=== PATIENT | male | born 1965 | race African-American/Black ===

== ENCOUNTER 2017-11-30 21:37 | Emergency (ER) | payer SELFPAY ==
[~2017-11-30] VITALS: Ht 180.3 cm; Wt 102.0 kg
[~2017-11-30 21:37] MED LIST: BENADRYL
[2017-11-30] MEDS ORDERED: LISI-662 PO (21:40)
[2017-11-30] MEDS ORDERED: DIPH25 PO (21:40)
[2017-11-30] MEDS ORDERED: DiphenhydrAMINE HCL 50 MG/ML VIAL IVP ONE (22:00)
[2017-11-30] MEDS ORDERED: FAMOTIDINE 10 MG/ML 2 ML VIAL IVP ONE (22:00)
[2017-11-30] MEDS ORDERED: MethylPREDNISolone SOD SUCC 125 MG/2 ML VIAL IVP ONE (22:00)
[2017-11-30 22:13] LABS: BASOPHILS % (AUTO) 0.5 % (0.0-2.0); EOSINOPHILS % (AUTO) 2.9 % (1.0-6.0); HEMATOCRIT 50.6 % (41-53); HEMOGLOBIN 17.4 g/dL (13.5-17.5); LYMPHOCYTES # (AUTO) 2.3 K/uL (1.0-4.8); LYMPHOCYTES % (AUTO) 20.9 % (22.0-44.0); MEAN CORPUSCULAR HEMOGLOBIN 30.7 pg (26.0-34.0); MEAN CORPUSCULAR HGB CONC 34.4 G/dL (31.0-37.0); MEAN CORPUSCULAR VOLUME 89 fL (80-100); MONOCYTES # (AUTO) 0.8 K/uL (0.1-1.0); MONOCYTES % (AUTO) 7.6 % (2.0-9.0); NEUTROPHILS # (AUTO) 7.4 K/uL (1.8-7.7); NEUTROPHILS % (AUTO) 68.1 % (40.0-70.0); PLATELET COUNT (AUTO) 215 K/uL (150-450); RED BLOOD CELL COUNT(AUTO) 5.66 MIL/uL (4.50-5.90); RED CELL DISTRIBUTION WIDTH 14.4 % (11.5-14.5)
[2017-11-30 22:16] LABS: CREATININE 1.75 mg/dL (0.60-1.30); POTASSIUM 3.5 mmol/L (3.5-5.1)
[2017-11-30 22:22] LABS: ALBUMIN 3.5 g/dL (3.4-5.0); BILIRUBIN,TOTAL 0.5 mg/dL (0.1-1.0); TOTAL PROTEIN, SERUM 7.3 g/dL (6.4-8.2)
[2017-11-30 23:53] VITALS: BP 123/81
== END 2017-12-01 | disposition left against medical advice (07) ==
LOC: EMS 21:38
DX: T78.3XXA Angioneurotic edema, initial encounter (principal); F17.210 Nicotine dependence, cigarettes, uncomplicated; I10 Essential (primary) hypertension
CPT/HCPCS: 36415; 80053; 85025; 96374; 96375; 99291; J1200; J2930; J3490

== ENCOUNTER 2018-04-05 14:38 | Emergency (ER) | payer MEDICAID ==
[~2018-04-05] VITALS: Ht 177.8 cm; Wt 109.1 kg
[~2018-04-05 14:38] MED LIST changes: -BENADRYL; +DIPH25 PO; +LISI-662 PO
[2018-04-05 14:58] LABS: GLUCOSE,POINT OF CARE 161 MG/DL (70-110)
[2018-04-05] MEDS ORDERED: KETOROLAC TROMETHAMINE 30 MG/ML VIAL IVP ONE (15:30)
[2018-04-05 15:44] LABS: EOSINOPHILS % (AUTO) 3.5 % (1.0-6.0); HEMATOCRIT 43.3 % (41-53); HEMOGLOBIN 14.9 g/dL (13.5-17.5); LYMPHOCYTES # (AUTO) 1.6 K/uL (1.0-4.8); LYMPHOCYTES % (AUTO) 21.1 % (22.0-44.0); MEAN CORPUSCULAR HEMOGLOBIN 30.7 pg (26.0-34.0); MEAN CORPUSCULAR HGB CONC 34.4 G/dL (31.0-37.0); MEAN CORPUSCULAR VOLUME 89 fL (80-100); MONOCYTES # (AUTO) 0.5 K/uL (0.1-1.0); MONOCYTES % (AUTO) 6.5 % (2.0-9.0); NEUTROPHILS # (AUTO) 5.2 K/uL (1.8-7.7); NEUTROPHILS % (AUTO) 67.9 % (40.0-70.0); PLATELET COUNT (AUTO) 247 K/uL (150-450); RED BLOOD CELL COUNT(AUTO) 4.85 MIL/uL (4.50-5.90); RED CELL DISTRIBUTION WIDTH 13.6 % (11.5-14.5)
[2018-04-05 16:46] VITALS: BP 137/85
== END 2018-04-05 16:54 | disposition home or self-care (01) ==
LOC: EMS 14:40
DX: M10.9 Gout, unspecified (principal); M79.89 Other specified soft tissue disorders; L53.9 Erythematous condition, unspecified; I10 Essential (primary) hypertension; F17.210 Nicotine dependence, cigarettes, uncomplicated
CPT/HCPCS: 36415; 82962; 84550; 85025; 96374; 99284; J1885

== ENCOUNTER 2020-11-21 12:32 | Emergency (ER) | payer MEDICAID ==
[~2020-11-21] VITALS: Ht 180.3 cm; Wt 97.7 kg
[2020-11-21] MEDS ORDERED: PredniSONE 20 MG TABLET PO ONE (13:30)
[2020-11-21 14:11] VITALS: BP 151/93
== END 2020-11-21 14:15 | disposition home or self-care (01) ==
LOC: EMS 12:39
DX: R21 Rash and other nonspecific skin eruption (principal); I10 Essential (primary) hypertension; F17.210 Nicotine dependence, cigarettes, uncomplicated
CPT/HCPCS: 99283; J7512

== ENCOUNTER 2021-12-29 10:48 | Emergency (ER) | payer OTHER ==
[~2021-12-29] VITALS: Ht 177.8 cm; Wt 104.5 kg
[2021-12-29] MEDS ORDERED: GARL600T2 PO (10:58)
[2021-12-29] MEDS ORDERED: ASPI-1450 PO (10:58)
[2021-12-29] MEDS ORDERED: ALLO-45 PO (11:34)
[2021-12-29] MEDS ORDERED: INDO50CA97 PO (11:34)
[2021-12-29] MEDS ORDERED: INDOMETHACIN 50 MG CAPSULE PO ONE (11:45)
[2021-12-29 12:02] VITALS: BP 147/97
== END 2021-12-29 12:23 | disposition home or self-care (01) ==
LOC: EDUNIT# 10:48 → EMS 10:55
DX: M10.9 Gout, unspecified (principal); I10 Essential (primary) hypertension; F17.210 Nicotine dependence, cigarettes, uncomplicated; Z79.82 Long term (current) use of aspirin; Z79.899 Other long term (current) drug therapy
CPT/HCPCS: 99283

== ENCOUNTER 2022-03-10 16:15 | Emergency (ER) | payer OTHER ==
[~2022-03-10] VITALS: Ht 167.6 cm; Wt 111.4 kg
[~2022-03-10 16:15] MED LIST changes: +ALLO-45 PO; +ASPI-1450 PO; -DIPH25 PO; +GARL600T2 PO; +INDO50CA97 PO; -LISI-662 PO
[2022-03-10 18:11] VITALS: BP 149/78
[2022-03-10] MEDS ORDERED: PRED20TA3 PO (18:14)
== END 2022-03-10 18:26 | disposition home or self-care (01) ==
LOC: EMS 16:19
DX: M10.9 Gout, unspecified (principal); I10 Essential (primary) hypertension; F17.210 Nicotine dependence, cigarettes, uncomplicated; Z79.82 Long term (current) use of aspirin; Z79.899 Other long term (current) drug therapy
CPT/HCPCS: 99283

== ENCOUNTER 2022-06-25 11:28 | Emergency (ER) | payer OTHER ==
[~2022-06-25 11:28] MED LIST changes: +PRED20TA3 PO
== END 2022-06-25 15:16 | disposition left against medical advice (07) ==
LOC: EMS 11:32
DX: Z53.21 Procedure and treatment not carried out due to patient leaving prior to being seen by health care provider (principal)

== ENCOUNTER 2022-11-02 11:25 | Emergency (ER) | payer OTHER ==
[~2022-11-02] VITALS: Ht 177.8 cm; Wt 115.0 kg
[2022-11-02 13:23] VITALS: BP 154/96
[2022-11-02] MEDS ORDERED: PRED-554 PO (14:24)
[2022-11-02] MEDS ORDERED: TRIA15CR49 TP (14:24)
== END 2022-11-02 14:58 | disposition home or self-care (01) ==
LOC: EMS 11:54
DX: L30.9 Dermatitis, unspecified (principal); I10 Essential (primary) hypertension; F17.210 Nicotine dependence, cigarettes, uncomplicated; F10.90 Alcohol use, unspecified, uncomplicated; Z88.8 Allergy status to other drugs, medicaments and biological substances
CPT/HCPCS: 99283; Z7502

== ENCOUNTER 2023-04-30 13:18 | Emergency (ER) | payer OTHER ==
[~2023-04-30] VITALS: Ht 177.8 cm; Wt 107.7 kg
[~2023-04-30 13:18] MED LIST changes: -ALLO-45 PO; -ASPI-1450 PO; -GARL600T2 PO; -INDO50CA97 PO; +PRED-554 PO; -PRED20TA3 PO; +TRIA15CR49 TP
[2023-04-30 13:22] VITALS: TEMP 98.4
[2023-04-30] MEDS ORDERED: KETOROLAC TROMETHAMINE 60 MG/2 ML VIAL IM ONE (15:30)
[2023-04-30] MEDS ORDERED: OxyCODONE HCL/ACETAMINOPHEN 5-325 MG TABLET PO ONE (15:30)
[2023-04-30] MEDS ORDERED: LIDOCAINE 5% TRANSDERMAL PATCH TD ONE (15:30)
[2023-04-30 16:24] LABS: COVID AG,FIA SOURCE NASAL SWAB
[2023-04-30] MEDS ORDERED: PERCT PO (16:35)
[2023-04-30] MEDS ORDERED: IBUP-1492 PO (16:37)
[2023-04-30 16:45] VITALS: BP 134/87; PULSE 98; RESP 17
== END 2023-04-30 17:21 | disposition home or self-care (01) ==
LOC: EMS 13:18
DX: M25.511 Pain in right shoulder (principal); I10 Essential (primary) hypertension; M10.9 Gout, unspecified; F17.210 Nicotine dependence, cigarettes, uncomplicated; Z88.8 Allergy status to other drugs, medicaments and biological substances; Z20.822 Contact with and (suspected) exposure to COVID-19
CPT/HCPCS: 99284; 87426; 73030; 96372; J1885

== ENCOUNTER 2023-10-11 04:41 | Emergency (ER) | payer OTHER ==
[~2023-10-11] VITALS: Ht 177.8 cm; Wt 91.0 kg
[~2023-10-11 04:41] MED LIST changes: +IBUP-1492 PO; +PERCT PO
[2023-10-11 04:56] VITALS: TEMP 98.2
[2023-10-11] MEDS: FAMOTIDINE 20 MG/2 ML VIAL IVP ONE (05:22)
[2023-10-11] MEDS: SODIUM CHLORIDE 0.9% 1,000 ML IV ONE (05:22)
[2023-10-11] MEDS: PB/HYOSCY/ATR/SCOP/LIDO/MAALOX 55 ML BOTTLE PO ONE (05:23)
[2023-10-11] MEDS: MORPHINE SULFATE 4 MG/ML SYRINGE IVP ONE (05:53)
[2023-10-11 05:58] LABS: EOSINOPHILS % (AUTO) 3.8 % (1.0-6.0); HEMATOCRIT 42.5 % (41-53); HEMOGLOBIN 14.4 g/dL (13.5-17.5); LYMPHOCYTES % (AUTO) 25.6 % (22.0-44.0); MEAN CORPUSCULAR HEMOGLOBIN 32.4 pg (26.0-34.0); MEAN CORPUSCULAR HGB CONC 33.9 G/dL (31.0-37.0); MEAN CORPUSCULAR VOLUME 96 fL (80-100); MONOCYTES # (AUTO) 0.6 K/uL (0.1-1.0); MONOCYTES % (AUTO) 8.1 % (2.0-9.0); NEUTROPHILS # (AUTO) 4.9 K/uL (1.8-7.7); NEUTROPHILS % (AUTO) 61.5 % (40.0-70.0); PLATELET COUNT (AUTO) 227 K/uL (150-450); RED BLOOD CELL COUNT(AUTO) 4.45 MIL/uL (4.50-5.90); RED CELL DISTRIBUTION WIDTH 17.4 % (11.5-14.5)
[2023-10-11 06:11] LABS: ANION GAP 12 mmol/L (8-16); CARBON DIOXIDE 28 mmol/L (22-29); CHLORIDE 100 mmol/L (98-107); CREATININE 1.14 mg/dL (0.60-1.30); GLOMERULAR FILTR. RATE CALC > 60 mL/min (>60); GLUCOSE,RANDOM 163 mg/dL (70-110); POTASSIUM 3.4 mmol/L (3.5-5.1); SODIUM SERUM 140 mmol/L (136-145); UREA NITROGEN, BLOOD 9 mg/dL (7-18)
[2023-10-11 06:12] LABS: PROTHROMBIN TIME 10.8 SEC (9.4-11.6)
[2023-10-11 06:16] LABS: B-TYPE NATRIURETIC PEPTIDE < 5 pg/mL (0-100)
[2023-10-11 06:19] LABS: TROPONIN I-HIGH SENSITIVITY 4 ng/L (<76)
[2023-10-11 06:36] LABS: ALANINE AMINOTRANSFERASE 30 U/L (12-78); ALBUMIN 3.4 g/dL (3.4-5.0); ALKALINE PHOSPHATASE 132 U/L (46-116); ASPARTATE AMINOTRANSFERASE 22 U/L (15-37); BILIRUBIN,TOTAL 0.4 mg/dL (0.1-1.0); CREATINE KINASE, TOTAL ONLY 133 U/L (39-308); TOTAL PROTEIN, SERUM 7.4 g/dL (6.4-8.2)
[2023-10-11] MEDS: ASPIRIN 81 MG CHEWABLE TABLET PO ONE (06:54)
[2023-10-11] MEDS: NITROGLYCERIN 2% (1 GM=INCH) OINTMENT PACKET TP ONE (06:55)
[2023-10-11] MEDS: PANTOPRAZOLE SODIUM 40 MG/VIAL IVP ONE (07:39)
[2023-10-11 07:49] LABS: TROPONIN I-HIGH SENSITIVITY 4 ng/L (<76)
[2023-10-11 08:15] VITALS: BP 138/92; PULSE 88; RESP 18
== END 2023-10-11 08:26 | disposition home or self-care (01) ==
LOC: EMS 04:42
DX: K21.9 Gastro-esophageal reflux disease without esophagitis (principal); R07.89 Other chest pain; I10 Essential (primary) hypertension; F17.210 Nicotine dependence, cigarettes, uncomplicated; F10.90 Alcohol use, unspecified, uncomplicated; Y90.9 Presence of alcohol in blood, level not specified
CPT/HCPCS: 99285; 96374; 71045; 96375; 96361; 80053; 82550; 83880; 84484; 85025; 85610; 85730; 36415; 93005; J3490; J2270; C9113; J7030

== ENCOUNTER 2023-12-18 13:07 | Emergency (ER) | payer OTHER ==
[~2023-12-18] VITALS: Ht 177.8 cm; Wt 104.5 kg
[2023-12-18 13:09] VITALS: TEMP 97.9
[2023-12-18] MEDS ORDERED: ALLO-97 PO (14:48)
[2023-12-18] MEDS: TraMADol HCL 50 MG TABLET PO ONE (14:55)
[2023-12-18 15:25] VITALS: BP 131/56; PULSE 90; RESP 16
== END 2023-12-18 15:42 | disposition home or self-care (01) ==
LOC: EMS 13:20
DX: S63.601A Unspecified sprain of right thumb, initial encounter (principal); M10.9 Gout, unspecified; I10 Essential (primary) hypertension; F17.210 Nicotine dependence, cigarettes, uncomplicated; Z88.8 Allergy status to other drugs, medicaments and biological substances; W19.XXXA Unspecified fall, initial encounter; Y93.89 Activity, other specified; Y92.89 Other specified places as the place of occurrence of the external cause; Y99.8 Other external cause status
CPT/HCPCS: 99284; 73090-TC; 73130-TC; Z7502; Z7610

== ENCOUNTER 2024-08-26 16:59 | Emergency (ER) | payer OTHER ==
[~2024-08-26] VITALS: Ht 177.8 cm; Wt 100.0 kg
[~2024-08-26 16:59] MED LIST changes: +ALLO-97 PO
[2024-08-26 17:08] VITALS: TEMP 98
[2024-08-26 19:31] LABS: BASOPHILS % (AUTO) 0.7 % (0.0-2.0); EOSINOPHILS % (AUTO) 3.6 % (1.0-6.0); HEMATOCRIT 42.8 % (41-53); HEMOGLOBIN 14.1 g/dL (13.5-17.5); LYMPHOCYTES # (AUTO) 1.4 K/uL (1.0-4.8); LYMPHOCYTES % (AUTO) 12.5 % (22.0-44.0); MEAN CORPUSCULAR HEMOGLOBIN 31.1 pg (26.0-34.0); MEAN CORPUSCULAR HGB CONC 32.9 G/dL (31.0-37.0); MEAN CORPUSCULAR VOLUME 94 fL (80-100); MONOCYTES % (AUTO) 9.4 % (2.0-9.0); NEUTROPHILS # (AUTO) 8.1 K/uL (1.8-7.7); NEUTROPHILS % (AUTO) 73.8 % (40.0-70.0); PLATELET COUNT (AUTO) 349 K/uL (150-450); RED BLOOD CELL COUNT(AUTO) 4.54 MIL/uL (4.50-5.90); RED CELL DISTRIBUTION WIDTH 15.5 % (11.5-14.5)
[2024-08-26] MEDS: ALLOPURINOL 300 MG TABLET PO ONE (19:42)
[2024-08-26] MEDS: KETOROLAC TROMETHAMINE 30 MG/ML VIAL IM ONE (19:43)
[2024-08-26 19:57] LABS: ANION GAP 6 mmol/L (8-16); CALCIUM, TOTAL 9.6 mg/dL (8.8-10.5); CARBON DIOXIDE 29 mmol/L (22-29); CHLORIDE 100 mmol/L (98-107); CREATININE 1.32 mg/dL (0.60-1.30); GLOMERULAR FILTR. RATE CALC > 60 mL/min (>60); GLUCOSE,RANDOM 106 mg/dL (70-110); POTASSIUM 4.1 mmol/L (3.5-5.1); SODIUM SERUM 135 mmol/L (136-145); UREA NITROGEN, BLOOD 17 mg/dL (7-18)
[2024-08-26 20:00] LABS: URIC ACID 6.2 mg/dL (2.6-7.2)
[2024-08-26 20:12] VITALS: BP 164/95; PULSE 90; RESP 18; O2SAT 98
[2024-08-26] MEDS ORDERED: IBUP-1492 PO (20:30)
[2024-08-26] MEDS ORDERED: ALLO-97 PO (20:30)
== END 2024-08-26 20:49 | disposition home or self-care (01) ==
LOC: EMS 16:59
DX: M10.9 Gout, unspecified (principal); E11.9 Type 2 diabetes mellitus without complications; I10 Essential (primary) hypertension; F17.210 Nicotine dependence, cigarettes, uncomplicated; Z79.52 Long term (current) use of systemic steroids; Z88.8 Allergy status to other drugs, medicaments and biological substances
CPT/HCPCS: 99283; 80048; 84550; 85025; 36415; 96372; J1885